=== PATIENT | female | born 1990 | race Caucasian/White ===

== ENCOUNTER 2019-08-31 08:08 | Emergency (ER) | payer SELFPAY ==
[~2019-08-31] VITALS: Ht 157.5 cm; Wt 90.0 kg
[2019-08-31] MEDS ORDERED: ACETAMINOPHEN 325MG TABLET PO PRN (09:30)
[2019-08-31 09:48] LABS: BASOPHILS % 0.5 % (0.0-2.0); EOSINOPHILS % 4.7 % (0.0-5.0); HEMATOCRIT. 39.6 % (36.0-48.0); MEAN CORPUSCULAR HEMOGLOBIN 24.9 pg (28.0-32.0); MEAN CORPUSCULAR VOLUME 75.9 fL (81.0-99.0); MEAN PLATELET VOLUME 8.1 fl (7.4-10.4); MONOCYTES % 9.3 % (2.0-8.0); NEUTROPHILS % 62.5 % (40.0-76.0); PLATELET 233 x1000/uL (130-400); RED BLOOD CELL COUNT 5.22 mill/uL (4.2-5.4); RED CELL DISTRIBUTION WIDTH 14.6 % (11.6-14.6)
[2019-08-31 09:58] LABS: CHLORIDE 109 mEq/L (98-107)
[2019-08-31 10:09] LABS: B-HCG QUANTITATIVE < 1 mIU/mL (<3)
[2019-08-31 10:24] LABS: CLARITY URINE CLEAR (CLEAR); COLOR URINE YELLOW (YELLOW); KETONES URINE NEGATIVE (NEGATIVE); LEUKOCYTE ESTERASE URINE 1+ (NEGATIVE); NITRITE URINE NEGATIVE (NEGATIVE); OCCULT BLOOD URINE 2+ (NEGATIVE); PH URINE 7.5 (4.5-8.0); PROTEIN URINE NEGATIVE (NEGATIVE); SPECIFIC GRAVITY URINE 1.012 (1.005-1.030); UROBILINOGEN URINE 0.2 E.U./dL (0.2-1.0)
[2019-08-31 11:23] VITALS: BP 118/72
== END 2019-08-31 11:25 | disposition home or self-care (01) ==
LOC: ER 08:17
DX: N39.0 Urinary tract infection, site not specified (principal)
CPT/HCPCS: 36415; 76830; 76856; 80053; 81003; 81025; 84702; 85025; 99284

== ENCOUNTER 2019-09-17 02:30 | Emergency (ER) | payer SELFPAY ==
[~2019-09-17] VITALS: Ht 165.1 cm; Wt 73.0 kg
[2019-09-17 04:59] VITALS: BP 120/68
== END 2019-09-17 05:01 | disposition home or self-care (01) ==
LOC: ER 02:30
DX: J06.9 Acute upper respiratory infection, unspecified (principal)
CPT/HCPCS: 99283